=== PATIENT | female | born 1985 | race Caucasian/White ===

== ENCOUNTER → 2017-05-06 | Day surgery (SDC) | payer OTHER ==
[~2017-05-06] VITALS: Ht 167.6 cm; Wt 84.6 kg
[~2017-05-06] MED LIST: Bupivacaine-MPF 0.5% 30 mL Inj INFILTRATE ONE; Dexamethasone 4 mg/mL Inj IVPUSH PRN; Dexamethasone 4 mg/mL Inj ONE; EPHEDrine Sulfate 50 mg/mL Inj IVPUSH PRN; Glycopyrrolate 0.2 MG/ML 1mL Inj ONE; HYDROmorphone 1 mg/mL Inj IVPUSH PRN; Lactated Ringer's 1,000 ML IV SCH; Lactated Ringer's 500 ML IV PRN; MetoCLOpramide 5 mg/mL 2 mL Inj IVPUSH PRN; Neostigmine 1 mg/mL 10 mL Inj ONE; Ondansetron 2 mg/mL 2 mL Inj IVPUSH PRN; Ondansetron 2 mg/mL 2 mL Inj ONE; PREN-105 PO; Phenylephrine 10,000 mCg/mL Inj IVPUSH PRN; Phenylephrine/NS 100 mCg/mL 10 mL Syringe IVPUSH ONE; Propofol 10,000 mCg/mL 20 mL Inj ONE; Rocuronium 10 mg/mL 5 mL Inj ONE; TRAM50TA2 PO; diphenhydrAMINE 25 mg Capsule PO PRN; fentaNYL-PF 50 mCg/mL 2 mL Inj ONE; oxyCODONE-Acetamin 5-325 mg Tablet PO PRN
[2017-05-06 07:25] VITALS: BP 114/63; PULSE 72; RESP 12; O2SAT 98
[2017-05-06] MEDS: Lactated Ringer's 1,000 ML IV SCH ×2 (07:44→09:16)
--- NOTE | 2017-05-06 09:13 | PCM.HPANE ---
Patient Data Date of Service: May 06, 2017 Surgeon Admitting Provider: Attending Provider:Krzysztof Gauthier MD Primary Care Physician:Dom Daniel PA-C Other Provider:Snow Trejo Anesthesia Reason for Visit Endometriosis Ht/WT & BMI Height (Feet): 5 Height (Inches): 6.00 Weight (Kilograms): 84.600 Body Mass Index 29.00 Allergies Coded Allergies: Sulfa (Sulfonamide Antibiotics) (Verified Allergy, Unknown, 11/20/11) Past Anesthesia History Anesthesia History: Denies:: Abnormal Airway, Anesthesia Reactions, Difficult Intubation, Fam Anesthesia Reaction, Fam Malignant Hypertherm, Malignant Hyperthermia Diabetes History Hx Diabetes?: No MRSA MRSA: No Medications Hypertension Medication: No Home Meds Incl Beta Paolo: No Reported Medications Vits #93/Iron Fum/FA ( Formula Tablet)1 Each Tablet1 Each PO DAILY 04/28/17 Tramadol 50 Mg [id number] Mg PO Q8H PRN For Pain Ref 0 04/28/17 History History of ENT Problems?: No HEENT History: Denies:: Abnormal Airway Cataracts Difficult Intubation Dysphagia Glaucoma Hearing Problem Sinus Problem TMJ Denture Type: None Teeth Condition: Within Normal Limits Missing Teeth Hx of Heart Problems?: No Cardiovascular History: Positive for:: Heart Murmur (heart murmur as child, no longer heard) Denies:: AICD Abdominal Aortic Aneurism Atrial Fibrillation Cardiac Surgery Hypertension Irregular Heartbeat Pacemaker Peripheral Vascular Hx of Respiratory Problem?: No Respiratory History: Denies:: Asthma COPD Emphysema Oxygen Administration Pneumonia Tuberculosis Use of C-PAP Machine Use of Inhalers / NEBS Hx Neurologic Problems?: No Neurological History: Denies:: CVA Headaches Multiple Sclerosis Parkinson's Disease Seizures TIA Hx of GI Problems?: No Hx of Problems?: No Genitourinary History: Denies:: HX of Hemodialysis Kidney Stones Urinary Tract Infection HX of Peritoneal Dialysis: No Female Hx: Positive for:: Endometriosis (current admission problem) Denies:: Currently Pelvic Inflammatory Problems with Breasts? Skin History: Denies:: History Skin Disorders? Pressure Ulcers Hx Musculoskeletal Problems?: No Musculoskeletal History: Denies:: Back Injury Degenerative Joint Fibromyalgia Musculoskeletal Trauma Osteoarthritis Rheumatoid Arthritis Systemic Lupus Hx of Psycho/Social Problems?: No Psycho Social History: Denies:: Anxiety Bipolar Disorder Hx Depression Suicide Attempt Hx Surgeries?: Yes (dx laparoscopy) Hx Any Other Health Problems?: Yes Other History: Denies:: Cancer Thyroid Disease History Blood Transfusions: Positive for:: Accept Blood Products? Denies:: Blood Transfuse Reaction Blood Transfusions Hx Diabetes: No Hx Alcohol Use: NoHx Substance Use: NoHave You Smoked inLast 12 mo: No Stop/Bang Treated for Sleep Apnea?: No Do You Have a CPAP Machine?: No S-Snoring: Do You Snore Loudly: No T-Tired: feel tired, fatigued: No O-Obsered: Observed not breath: No P-Blood Pressure: treated: No B- Body Mass Index > 35 kg/m2: No A- Age over 50: No N- Neck Large Circumference: No G- Gender Male: No GWEN Total Score: 0 Risk Assessment Category Category 1A: Patient has history of documented sleep apnea, and HAS NOT received any narcotic, sedative or anesthesia administration during this stay. Category 1B: Patient has history of documented sleep apnea, and HAS received any narcotic , sedative or anesthesia administration during this stay Category 2: Patient has SUSPECTED Obstructive Sleep Apnea, and HAS received any narcotic , sedative or anesthesia administration during this stay. Category 3: Patient has SUSPECTED Obstructive Sleep Apnea and HAS NOT received narcotic, sedative or anesthesia administration during this stay. Category 4: Outpatient in Procedural Areas with known sleep apnea or who screen positive for High Risk via the STOP/BANG questionnaire. Exam Exam Vital Signs Vital Signs Date Time Temp Pulse Resp B/P Pulse Ox O2 Delivery O2 Flow Rate FiO2 05/06/17 07:25 36.7 72 12 114/63 98 Room Air General Appearance: Alert HEENT/AIRWAY: MP 2 Lungs: Clear to Auscultation Heart: Exam Unremarkable Meds/Labs/Diagnostics Admission Meds Current Medications Lactated Ringer's (Lr) 1,000 ml @ 120 mls/hr Q8H20M IV Last administered on t 07:44; Start 05/06/17 at 05:00; Stop 05/06/17 at 13:19 Plan Impression Patient chart reviewed, patient interviewed and anesthestic plan with risks, benefits, and alternatives discussed, and informed consent obtained. NPO per Anesth. Guidelines: Yes ASA Physical Status: ASA1 Normal Healthy Anesthetic Plan: GA Bene/Risks/Altern/Consents: Yes HP Complete Prior to Induction: Yes Jasen Cantu MD May 06, 2017 09:13
--- NOTE | 2017-05-06 10:37 | PCM.DIMED ---
Discharge Instructions Date of Service May 06, 2017 Dates of Hospitalization Diet Discharge Diet: No restrictions Activity Discharge Activity: No restrictions Call your provider Call your provider for: Fever or Chills, Shortness of breath, Bleeding, Chest pain, Vomitting, Excessive diarrhea, Weakness (unilateral) Patient Instructions Follow-up with PCP in: 2 weeks Krzysztof Gauthier MD May 06, 2017 10:37
[2017-05-06 10:41] VITALS: BP 104/60; PULSE 77; RESP 14; O2SAT 97
[2017-05-06 10:45] VITALS: BP 102/58; PULSE 68; RESP 18; O2SAT 96
[2017-05-06] MEDS: fentaNYL-PF 50 mCg/mL 2 mL Inj IVPUSH PRN ×3 (10:57→11:18)
[2017-05-06 11:05] VITALS: BP 98/62; PULSE 62; RESP 12; O2SAT 95
[2017-05-06 11:25] VITALS: BP 103/60; PULSE 71; RESP 14; O2SAT 98
--- NOTE | 2017-05-06 12:04 | PCM.ANEP1 ---
Post Anesthesia PACU Phase 1 Assessment Vital Signs Vital Signs Date Time Temp Pulse Resp B/P Pulse Ox O2 Delivery O2 Flow Rate FiO2 05/06/17 11:25 71 14 103/60 98 Room Air 05/06/17 11:05 62 12 98/62 95 Room Air 05/06/17 10:45 68 18 102/58 96 Room Air 05/06/17 10:41 36.3 77 14 104/60 97 Room Air 05/06/17 07:25 36.7 72 12 114/63 98 Room Air Anesthetic Administered: GA Level of Alertness: Sleepy, easy to arouse Pain: No Nausea or Vomiting: No CV Function & Hydration Stable: Yes Airway Device: Oxygen Delivery: Nasal Cannula Lungs: Clear to Auscultation PACU Phase 2 Assessment Patient Instructions Provided: N/A Jasen Cantu MD May 06, 2017 12:04
[2017-05-06 12:22] VITALS: BP 102/57; PULSE 85; RESP 14; O2SAT 95
--- NOTE | 2017-05-06 20:27 | OP ---
[address] [address] OPERATIVE REPORT PATIENT: LOY SCANLON : 1985 MR#: [id number] ADMIT: 05/06/2017 JOB ID: [id number] DATE OF SURGERY: 05/06/2017 PROCEDURE: Diagnostic laparoscopy. PREOPERATIVE DIAGNOSIS(ES): Chronic pelvic pain. Rule out endometriosis. POSTOPERATIVE DIAGNOSIS(ES): Chronic pelvic pain. SURGEON: Krzysztof Gauthier MD. DISPLAY SCREEN FABRICATOR: Indra Chopra MD. Assistance of Dr. Chopra was necessary for helping with retraction, manipulation of the tissue and visualizing anatomical structures. ANESTHESIA: General. ESTIMATED BLOOD LOSS: 3 mL. ESTIMATED URINE OUTPUT: 100 mL. FLUIDS: 400 mL of lactated Ringer. COMPLICATIONS: None. FINDINGS: Normal appearance of the uterus, fallopian tube and ovaries. No endometriotic lesions were identified. Normal appearance of mid abdomen and right and left upper quadrants of the abdomen. PROCEDURE: The patient was brought to the operating room and underwent general anesthesia without difficulties. The patient was placed in the dorsal lithotomy position using Cristóbal stirrups. She was prepped and draped in the usual surgical fashion. Time-out was performed verifying correct patient, correct procedure. Two Portillo retractors were placed into the vagina. The cervix was visualized and a Endoclear uterine manipulator was placed. Attention was then directed to the patient's abdomen where local Marcaine was injected in the paraumbilical area and a Veress needle was introduced. CO2 gas was insufflated with appropriate pneumoperitoneum achieved. A 5 mm subumbilical vertical skin incision was made with a scalpel and 5 mm trocar was placed through the incision. Using 0 degree scope, the pelvis and the abdomen were reviewed. A 5 mm skin incision was made in the left lower quadrant 5 cm superiorly and medially from the anterior superior iliac spine. A 5 mm trocar was placed through the incision. Manipulator and smooth DeBakey graspers were used to manipulate the tissue and visualize the anatomy. The patient has not been found to have endometriotic lesions. There were no adhesions as well. All the structures were reviewed including cul-de-sac area and uterosacral ligaments. No specimen was obtained during this diagnostic laparoscopy. A series of images, total of 15, was obtained during the case. The abdomen was desufflated from the CO2 gas. All the instruments and trocars were removed. Trocar skin incisions were reapproximated with 4-0 Monocryl. Hulka uterine manipulator was removed from the vagina. The patient tolerated the procedure well and was transferred to the recovery room in stable condition.
== END | disposition home or self-care (01) ==
LOC: SAS 07:07 → MERGE 09:15 → EDUNIT# 09:15
PROVIDERS: ATTEND Legal Medicine
DX: R10.2 Pelvic and perineal pain (principal); Z87.440 Personal history of urinary (tract) infections
CPT/HCPCS: 49320; J1100; J1885; J2250; J2370; J2405; J2704; J2710; J3010; J7120